=== PATIENT | male | born 2000 | race Caucasian/White ===

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

== ENCOUNTER → 2019-06-29 | Outpatient (CLI) | payer OTHER ==
--- NOTE | 2019-06-29 10:18 | XR ---
EXAMINATION TYPE: XR humerus LT DATE OF EXAM: 06/29/2019 COMPARISON: None HISTORY: Crush injury left shoulder TECHNIQUE: 2 view left humerus FINDINGS: Humeral head articulates with the glenoid. Acromioclavicular junction is normal. No acute f racture or dislocation is evident. The soft tissues appear unremarkable. IMPRESSION: 1. Normal 2 view left humerus.
== END | disposition home or self-care (01) ==
LOC: RADXRMAIN 09:17
PROVIDERS: ATTEND Emergency Medicine
DX: S47.2XXD Crushing injury of left shoulder and upper arm, subsequent encounter (principal)